=== PATIENT | male | born 1995 | race Caucasian/White ===

== ENCOUNTER 2023-03-29 18:50 | Observation (INO) ==
[2023-03-29 19:55] LABS: Alanine Aminotransferase 27 U/L (7-52); Albumin Globulin Ratio 1.6 (0.9-2); Albumin Level 4.3 gm/dl (3.4-5.0); Alkaline Phosphatase 76 U/L (34-104); Anion Gap 7 (3-11); Aspartate Aminotransferase 35 U/L (13-39); BUN Creatinine Ratio 17.6 (10-20); Bilirubin,Total 0.5 mg/dl (0.2-1.0); Blood Urea Nitrogen 12 mg/dl (6-23); Calcium 9.2 mg/dl (8.6-10.3); Carbon Dioxide 30 mmol/L (21-32); Chloride 99 mmol/L (98-107); Est GFR (African American) > 150.0 ml/min; Est GFR (Non-African American) 130.9 ml/min; Globulin 2.7 gm/dl (2.5-4.0); Glucose 147 mg/dl (70-99(Fasting)); Potassium 3.4 mmol/L (3.5-5.1); Sodium 136 mmol/L (136-145)
[2023-03-29 20:03] LABS: Basophils # (auto) 0.03 K/uL (0.00-0.20); Basophils % (auto) 0.4 %; Eosinophils # (auto) 0.58 K/uL (0.00-0.50); Eosinophils % (auto) 7.6 %; Hematocrit (blood only) 45.2 % (42.0-52.0); Hemoglobin 15.5 g/dl (14.0-18.0); Immature Granulocytes # (auto) 0.03 K/uL (0.01-0.20); Immature Granulocytes % (auto) 0.4 %; Lymphocytes # (auto) 0.97 K/uL (1.20-3.40); Lymphocytes % (auto) 12.7 %; Mean Corpuscular Hgb Conc 34.3 g/dL (32.0-36.0); Mean Corpuscular Volume 84.5 fL (80.0-100.0); Mean Platelet Volume 11.6 fL (9.4-12.4); Monocytes # (auto) 0.53 K/uL (0.11-0.59); Neutrophils # (auto) 5.48 K/uL (1.40-6.50); Neutrophils % (auto) 71.9 %; Platelet Count 278 K/uL (130-400); RDW Coefficient of Variation 12.5 % (11.5-14.5); RDW Standard Deviation 38.1 fL (36.4-46.3); Red Blood Count 5.35 M/uL (4.70-6.10); White Blood Count 7.62 K/ul (4.8-10.8)
[2023-03-29] MEDS ORDERED: VANCOMYCIN HCL 2,500 MG in SODIUM CHLORIDE 0.9% 500 ML IV ONE (22:14)
[2023-03-29] MEDS ORDERED: cefTRIAXone SODIUM 2,000 MG/50 ML BAG IV STA (22:14)
[2023-03-29] MEDS ORDERED: VANCOMYCIN CONSULT ACTIVE PRN (22:14)
[2023-03-29] MEDS ORDERED: SODIUM CHLORIDE 0.9% 1,000 ML IV SCH (22:15)
[2023-03-29] MEDS ORDERED: OPTIRAY 320 500ml IV ONE (22:58)
[2023-03-29 23:28] LABS: C Reactive Protein 10.56 mg/dl (0-0.5); Magnesium 2.1 mg/dl (1.7-2.4)
[2023-03-29 23:35] LABS: Troponin I High Sensitivity 14.8 pg/ml (0-20)
[2023-03-30 00:04] LABS: INR 1.1 (0.9-1.1); Partial Thromboplastin Ratio 1.1; Partial Thromboplastin Time 31.5 Seconds (21.0-31.0); Prothrombin Time 11.7 Seconds (9.0-12.0)
--- NOTE | 2023-03-30 00:35 | CT Scan Report ---
Exam(s): CT HEAD Without Contrast EXAM: CT Head Without Intravenous Contrast CLINICAL HISTORY: Reason for exam: fever, IVDU, RIVERA, CP, concerns for endocarditis. TECHNIQUE: Axial computed tomography images of the head/brain without intravenous contrast. CTDI is 36.67 mGy and DLP is 2259.97 mGy-cm. Automated exposure control was utilized for the study. A dose lowering technique was utilized adhering to the principles of ALARA. COMPARISON: No relevant prior studies available. FINDINGS: Brain: Unremarkable. No hemorrhage. No significant white matter disease. No edema. Ventricles: Unremarkable. No ventriculomegaly. Bones/joints: Unremarkable. No acute fracture. Soft tissues: Unremarkable. Sinuses: Unremarkable as visualized. No acute sinusitis. Mastoid air cells: Unremarkable as visualized. No mastoid effusion. IMPRESSION: Normal head/brain CT. Electronically signed by: Mariusz Erazo M.D. 03/30/23 00:34 AM
--- NOTE | 2023-03-30 00:44 | CT Scan Report ---
Exam(s): CTA CHEST IV Amt: 114ml optiray 320 EXAM: CT Angiography Chest With Intravenous Contrast CLINICAL HISTORY: Reason for exam: PE, fever, IVDU, RIVERA, CP, concerns for endocarditis. TECHNIQUE: Axial computed tomographic angiography images of the chest with intravenous contrast. Automated exposure control was utilized for the study. A dose lowering technique was utilized adhering to the principles of ALARA. MIP reconstructed images were created and reviewed. COMPARISON: No relevant prior studies available. FINDINGS: Pulmonary arteries: Unremarkable. No CT evidence of pulmonary embolism. Aorta: No acute findings. No thoracic aortic aneurysm. Lungs: Patchy groundglass opacities within the right upper lobe. Pleural space: Unremarkable. No significant effusion. No pneumothorax. Heart: Unremarkable. No cardiomegaly. No significant pericardial effusion. No evidence of RV dysfunction. Bones/joints: No acute fracture. No dislocation. Soft tissues: Unremarkable. Lymph nodes: Unremarkable. No enlarged lymph nodes. IMPRESSION: 1. No CT evidence of pulmonary embolism. 2. Patchy groundglass opacities within the right upper lobe. Electronically signed by: Mariusz Erazo M.D. 03/30/23 00:42 AM
--- NOTE | 2023-03-30 00:49 | CT Scan Report ---
Exam(s): CT ABDOMEN + PELVIS With Contrast IV Amt: 114ml optiray 320 EXAM: CT Abdomen and Pelvis With Intravenous Contrast CLINICAL HISTORY: Reason for exam: fever, IVDU,abd, RIVERA, CP, concerns for endocarditis. TECHNIQUE: Axial computed tomography images of the abdomen and pelvis with intravenous contrast. CTDI is 36.67 mGy and DLP is 2259.97 mGy-cm. Automated exposure control was utilized for the study. A dose lowering technique was utilized adhering to the principles of ALARA. CONTRAST: Patient received 114ml optiray 320 of IV contrast COMPARISON: No relevant prior studies available. FINDINGS: Lung bases: Unremarkable. No mass. No consolidation. ABDOMEN: Liver: Unremarkable. No mass. Gallbladder and bile ducts: Unremarkable. No calcified stones. No ductal dilation. Pancreas: Unremarkable. No mass. No ductal dilation. Spleen: Unremarkable. No splenomegaly. Adrenals: Unremarkable. No mass. Kidneys and ureters: Unremarkable. No solid mass. No hydronephrosis. Stomach and bowel: Unremarkable. No obstruction. No mucosal thickening. PELVIS: Appendix: No findings to suggest acute appendicitis. Bladder: Unremarkable. No mass. Reproductive: Unremarkable as visualized. ABDOMEN and PELVIS: Intraperitoneal space: Minimal free fluid in the pelvis. No free air. Bones/joints: No acute fracture. No dislocation. Soft tissues: Unremarkable. Vasculature: Unremarkable. No abdominal aortic aneurysm. Lymph nodes: Unremarkable. No enlarged lymph nodes. IMPRESSION: No acute findings in the abdomen or pelvis. Electronically signed by: Mariusz Erazo M.D. 03/30/23 00:48 AM
--- NOTE | 2023-03-30 02:34 | Emergency Department Note ---
History of Present Illness General Chief complaint: Wound Stated complaint: LEG AND ARM SORE ? 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 Patient is concerned he is septic. No known history of endocarditis but patient has not really been seen by DrAbdi Before. Patient denies numbness, tingling, vomiting, diarrhea. Home Medications Medication Instructions Recorded Confirmed Type buspirone 10 mg tablet 10 mg PO BID 03/30/23 03/30/23 History venlafaxine 75 mg capsule,extended 75 mg PO DAILY 03/30/23 03/30/23 History release 24 hr Allergies Allergy/AdvReac Type Severity Reaction Status Date / Time No Known Allergies Allergy Unverified 03/30/23 01:17 Past Med/Surg History Social History Smoking Status: Current every day smoker Feels Safe at Home: Yes Review of Systems A total of 10 systems reviewed and were otherwise negative Physical Exam Vital Signs Vital Signs - 24 hr 03/29/23 19:06 Temperature 36.5 C Temperature Source Temporal Artery Scan Pulse Rate 73 Respiratory Rate 18 Respiratory Effort / Characteristics Non-Labored Respiratory Depth Normal Blood Pressure 156/123 H Blood Pressure Mean 134 Pulse Oximetry 96 Oxygen Delivery Method Room Air Sepsis Recent Fever Within 48 Hours No Sepsis New/Unexplained Change in Mental Status No Sepsis Action Taken by Nursing No Action Required VITALS: Vitals are noted on the nurse's note and reviewed by myself. Vital signs reviewed. GENERAL: Pleasant gentleman mildly ill-appearing with multiple track robert with surrounding erythema without palpable abscess, in no acute distress, nondiaphoretic, well-developed well-nourished. SKIN: The skin was without rashes, or bruising. There is no tenting of the skin. Capillary reflex less than 2 seconds. HEAD: Normocephalic atraumatic. EARS: External auditory canals clear, tympanic membranes pearly rockwell without erythema or effusion bilaterally. EYES: Pupils equal round and reactive to light and accommodation. Conjunctivae without injection, sclerae without icterus. Extraocular movements intact. NOSE: Patent, turbinates without inflammation or discharge. MOUTH: Mucous membranes moist. Pharynx without erythema or exudate. Uvula midline. Airway patent. Tongue does not deviate. NECK: Supple without nuchal rigidity. No lymphadenopathy. No thyromegaly. Cervical spine is nontender. No JVD. HEART: Regular rate and rhythm LUNGS: Clear to auscultation bilaterally without wheezes, rales or rhonchi. No retractions or accessory muscle use. ABDOMEN: Positive bowel sounds x 4. Normal tympanic percussion. Soft, tender lower abdomen, without masses or organomegaly. Edmonds sign negative. No guarding or rebound tenderness. No CVA tenderness MUSCULOSKELETAL: Multiple track robert with surrounding erythema to all extremities, no palpable abscess, no other muscle atrophy, erythema, or edema noted. NEURO: Patient was alert and oriented to person place and time. Normal sensation to light and sharp touch. No focal neurological deficits. Course Administered Medications Discontinued Medications Sodium Chloride (Nss) 1,000 mls @ 999 mls/hr IV .Q1H1M GREG Stop: 03/29/23 23:15 Last Admin: 03/29/23 23:45 Dose: 999 mls/hr Documented By: KAMARI Vancomycin HCl 2,500 mg/ (Sodium Chloride) 550 mls @ 200 mls/hr IV NOW ONE Stop: 03/30/23 00:43 Last Admin: 03/30/23 00:20 Dose: 200 mls/hr Documented By: KAMARI Ceftriaxone Sodium (Rocephin) 2,000 mg in 50 mls @ 100 mls/hr IV NOW STA Stop: 03/29/23 22:43 Last Infusion: 03/30/23 00:20 Dose: 0 mls/hr Documented By: Admin: 03/29/23 23:47 Dose: 100 mls/hr Documented By: KAMARI Ioversol (Optiray 320 500ml) 114 ml IV ONCE ONE Stop: 03/29/23 22:59 Last Admin: 03/29/23 22:59 Dose: 114 ml Documented By: NANCY Medical Decision Making Medical Records Attestation: I reviewed the patient's medical records. Home Medications Current Medication List: was personally reviewed by me Laboratory Data Attestation: I reviewed the patient's lab results. 03/29/23 19:19 03/29/23 19:19 Lab Results 03/29/23 03/29/23 03/29/23 Range/Units 19:19 19:19 23:09 WBC 7.62 (4.8-10.8) K/ul RBC 5.35 (4.70-6.10) M/uL Hgb 15.5 (14.0-18.0) g/dl Hct 45.2 (42.0-52.0) % MCV 84.5 (80.0-100.0) fL MCH 29.0 (25.0-34.0) pg MCHC 34.3 (32.0-36.0) g/dL RDW Std Deviation 38.1 (36.4-46.3) fL RDW Coeff of Mahi 12.5 (11.5-14.5) % Plt Count 278 (130-400) K/uL MPV 11.6 (9.4-12.4) fL Immature Gran % (Auto) 0.4 % Neut % (Auto) 71.9 % Lymph % (Auto) 12.7 % [place] % (Auto) 7.0 % Eos % (Auto) 7.6 % Baso % (Auto) 0.4 % Neut # (Auto) 5.48 (1.40-6.50) K/uL Lymph # (Auto) 0.97 L (1.20-3.40) K/uL [place] # (Auto) 0.53 (0.11-0.59) K/uL Eos # (Auto) 0.58 H (0.00-0.50) K/uL Baso # (Auto) 0.03 (0.00-0.20) K/uL Immature Gran # (Auto) 0.03 (0.01-0.20) K/uL ESR (0-15) mm/hr PT (9.0-12.0) Seconds INR (0.9-1.1) APTT (21.0-31.0) Seconds PTT Ratio Sodium 136 (136-145) mmol/L Potassium 3.4 L (3.5-5.1) mmol/L Chloride 99 (98-107) mmol/L Carbon Dioxide 30 (21-32) mmol/L Anion Gap 7 (3-11) BUN 12 (6-23) mg/dl Creatinine 0.68 (0.6-1.4) mg/dl Est Cr Clr Drug Dosing Not Reportable Est GFR ( Amer) > 150.0 ml/min Est GFR (Non-Af Amer) 130.9 ml/min BUN/Creatinine Ratio 17.6 (10-20) Glucose 147 H (70-99(Fasting)) mg/dl Lactate 0.7 (0.4-2.0) mmol/L Calcium 9.2 (8.6-10.3) mg/dl Magnesium 2.1 (1.7-2.4) mg/dl Total Bilirubin 0.5 (0.2-1.0) mg/dl AST 35 (13-39) U/L ALT 27 (7-52) U/L Alkaline Phosphatase 76 (34-104) U/L Troponin I High Sens 14.8 (0-20) pg/ml C-Reactive Protein 10.56 H (0-0.5) mg/dl Total Protein 7.0 (6.0-8.3) gm/dl Albumin 4.3 (3.4-5.0) gm/dl Globulin 2.7 (2.5-4.0) gm/dl Albumin/Globulin Ratio 1.6 (0.9-2) Procalcitonin (0-0.5) ng/ml 03/29/23 03/29/23 03/29/23 Range/Units 23:09 23:09 23:09 WBC (4.8-10.8) K/ul RBC (4.70-6.10) M/uL Hgb (14.0-18.0) g/dl Hct (42.0-52.0) % MCV (80.0-100.0) fL MCH (25.0-34.0) pg MCHC (32.0-36.0) g/dL RDW Std Deviation (36.4-46.3) fL RDW Coeff of Mahi (11.5-14.5) % Plt Count (130-400) K/uL MPV (9.4-12.4) fL Immature Gran % (Auto) % Neut % (Auto) % Lymph % (Auto) % [place] % (Auto) % Eos % (Auto) % Baso % (Auto) % Neut # (Auto) (1.40-6.50) K/uL Lymph # (Auto) (1.20-3.40) K/uL [place] # (Auto) (0.11-0.59) K/uL Eos # (Auto) (0.00-0.50) K/uL Baso # (Auto) (0.00-0.20) K/uL Immature Gran # (Auto) (0.01-0.20) K/uL ESR 18 H (0-15) mm/hr PT 11.7 (9.0-12.0) Seconds INR 1.1 (0.9-1.1) APTT 31.5 H (21.0-31.0) Seconds PTT Ratio 1.1 Sodium (136-145) mmol/L Potassium (3.5-5.1) mmol/L Chloride (98-107) mmol/L Carbon Dioxide (21-32) mmol/L Anion Gap (3-11) BUN (6-23) mg/dl Creatinine (0.6-1.4) mg/dl Est Cr Clr Drug Dosing Est GFR ( Amer) ml/min Est GFR (Non-Af Amer) ml/min BUN/Creatinine Ratio (10-20) Glucose (70-99(Fasting)) mg/dl Lactate (0.4-2.0) mmol/L Calcium (8.6-10.3) mg/dl Magnesium (1.7-2.4) mg/dl Total Bilirubin (0.2-1.0) mg/dl AST (13-39) U/L ALT (7-52) U/L Alkaline Phosphatase (34-104) U/L Troponin I High Sens (0-20) pg/ml C-Reactive Protein (0-0.5) mg/dl Total Protein (6.0-8.3) gm/dl Albumin (3.4-5.0) gm/dl Globulin (2.5-4.0) gm/dl Albumin/Globulin Ratio (0.9-2) Procalcitonin < 0.05 (0-0.5) ng/ml Imaging Data Attestation: I personally reviewed and interpreted this imaging study as follows: Radiologist's Impression: Abdomen/Pelvis CT 03/29/23 22:14 Exam(s): CT ABDOMEN + PELVIS With Contrast IV Amt: 114ml optiray 320 EXAM: CT Abdomen and Pelvis With Intravenous Contrast CLINICAL HISTORY: Reason for exam: fever, IVDU,abd, RIVERA, CP, concerns for endocarditis. TECHNIQUE: Axial computed tomography images of the abdomen and pelvis with intravenous contrast. CTDI is 36.67 mGy and DLP is 2259.97 mGy-cm. Automated exposure control was utilized for the study. A dose lowering technique was utilized adhering to the principles of ALARA. CONTRAST: Patient received 114ml optiray 320 of IV contrast COMPARISON: No relevant prior studies available. FINDINGS: Lung bases: Unremarkable. No mass. No consolidation. ABDOMEN: Liver: Unremarkable. No mass. Gallbladder and bile ducts: Unremarkable. No calcified stones. No ductal dilation. Pancreas: Unremarkable. No mass. No ductal dilation. Spleen: Unremarkable. No splenomegaly. Adrenals: Unremarkable. No mass. Kidneys and ureters: Unremarkable. No solid mass. No hydronephrosis. Stomach and bowel: Unremarkable. No obstruction. No mucosal thickening. PELVIS: Appendix: No findings to suggest acute appendicitis. Bladder: Unremarkable. No mass. Reproductive: Unremarkable as visualized. ABDOMEN and PELVIS: Intraperitoneal space: Minimal free fluid in the pelvis. No free air. Bones/joints: No acute fracture. No dislocation. Soft tissues: Unremarkable. Vasculature: Unremarkable. No abdominal aortic aneurysm. Lymph nodes: Unremarkable. No enlarged lymph nodes. IMPRESSION: No acute findings in the abdomen or pelvis. Electronically signed by: Mariusz Erazo M.D. 03/30/23 00:48 AM Chest CTA 03/29/23 22:14 Exam(s): CTA CHEST IV Amt: 114ml optiray 320 EXAM: CT Angiography Chest With Intravenous Contrast CLINICAL HISTORY: Reason for exam: PE, fever, IVDU, RIVERA, CP, concerns for endocarditis. TECHNIQUE: Axial computed tomographic angiography images of the chest with intravenous contrast. Automated exposure control was utilized for the study. A dose lowering technique was utilized adhering to the principles of ALARA. MIP reconstructed images were created and reviewed. COMPARISON: No relevant prior studies available. FINDINGS: Pulmonary arteries: Unremarkable. No CT evidence of pulmonary embolism. Aorta: No acute findings. No thoracic aortic aneurysm. Lungs: Patchy groundglass opacities within the right upper lobe. Pleural space: Unremarkable. No significant effusion. No pneumothorax. Heart: Unremarkable. No cardiomegaly. No significant pericardial effusion. No evidence of RV dysfunction. Bones/joints: No acute fracture. No dislocation. Soft tissues: Unremarkable. Lymph nodes: Unremarkable. No enlarged lymph nodes. IMPRESSION: 1. No CT evidence of pulmonary embolism. 2. Patchy groundglass opacities within the right upper lobe. Electronically signed by: Mariusz Erazo M.D. 03/30/23 00:[address] 03/29/23 22:14 Exam(s): CT HEAD Without Contrast EXAM: CT Head Without Intravenous Contrast CLINICAL HISTORY: Reason for exam: fever, IVDU, RIVERA, CP, concerns for endocarditis. TECHNIQUE: Axial computed tomography images of the head/brain without intravenous contrast. CTDI is 36.67 mGy and DLP is 2259.97 mGy-cm. Automated exposure control was utilized for the study. A dose lowering technique was utilized adhering to the principles of ALARA. COMPARISON: No relevant prior studies available. FINDINGS: Brain: Unremarkable. No hemorrhage. No significant white matter disease. No edema. Ventricles: Unremarkable. No ventriculomegaly. Bones/joints: Unremarkable. No acute fracture. Soft tissues: Unremarkable. Sinuses: Unremarkable as visualized. No acute sinusitis. Mastoid air cells: Unremarkable as visualized. No mastoid effusion. IMPRESSION: Normal head/brain CT. Electronically signed by: Mariusz Erazo M.D. 03/30/23 00:34 AM MDM Narrative Prior records/ancillary studies reviewed and summarized above. Nursing notes reviewed. Additional history obtained from girlfriend. The patient's history was concerning for fever, chills, joint pains and chest pain and abdominal pain and IV drug abuser. Differential diagnosis: Etiologies such as endocarditis, sepsis, septic emboli, metabolic, infection, hypo/hyperglycemia, electrolyte abnormalities, cardiac sources, intracerebral event, toxicologic, neurologic, as well as others were entertained. Physical examination: As above. ER treatment provided: IV Lock An order was placed for continuous cardiac monitoring. The monitor shows a rate of 60-100 with a sinus rhythm per my interpretation. Vancomycin and Rocephin were ordered On reassessment the patient felt better. Diagnostics interpretation by me: ECG: Ordered for chest pain EKG: Normal sinus, normal intervals, no acute ST-T wave changes. Impression normal sinus rhythm independent interpreted by myself I think arrhythmia is unlikely. EKG shows normal sinus rhythm with no interval abnormalities such as QT prolongation or WPW. There are no findings to suggest Brugada syndrome. Cardiac monitoring in the emergency department reveals no tachycardic or bradycardic dysrhythmia. Hypertrophic cardiomyopathy was considered but there are no clear historical elements pointing toward this. EKG is not suggestive. The QRS voltage is not extremely large and there are no suggestive Q waves. The labs Independently Interpreted by myself revealed elevated inflammatory markers, no worrisome leukocytosis, negative troponin Negative lactic, blood cultures pending Imaging studies: Chest x-ray with no acute consolidation, pneumothorax or free air per my independent interpreted CTs of the head chest abdomen pelvis reviewed by myself and were interpreted radiology as above. Consultation: A consultation was placed with the hospitalist. The case was discussed and diagnostics were reviewed. The patient was evaluated in the ER for further treatment. Exam and history seem consistent with pneumonia with cellulitis with concerns for endocarditis and a IV drug abuser. Patient was started on broad-spectrum antibiotics. Labs and diagnostics were independently interpreted by myself. No worrisome leukocytosis, elevated inflammatory markers. Blood cultures pending. Negative lactic acid. Medicine was consulted and The case was discussed. Patient is agreeable treatment plan of admission. By the evaluation outlined above emergent etiologies such as electrolyte abnormalities, intracerebral event, toxologic, neurologic, abnormalities blood glucose, metabolic, as well as others were deemed relatively unlikely. The pt informed about the findings as listed above. All questions were answered and pleased with the treatment. The chart was completed utilizing [employer] Speech voice recognition software. Grammatical errors, random word insertions, pronoun errors, and incomplete sentences are an occassional consequence of this system due to software limitations, ambient noise, and hardware issues. Any formal questions or concerns about the content, text, or information contained within the body of this dictation should be directly addressed to the physician pediatric dental assistant for clarification. Impression & Plan Community acquired pneumonia, Active intravenous drug use, Cellulitis, Chest pain, Abdominal pain, Headache Discharge Plan Visit Data Chief Complaint: Wound Stated Complaint: LEG AND ARM SORE ? MRSA ED Provider: Natalya Rodríguez ED Midlevel Provider: Kiara Perales Discharge Problem: Community acquired pneumonia, Active intravenous drug use, Cellulitis, Chest pain, Abdominal pain, Headache Patient Disposition: Admitted As Inpatient Condition: Fair Forms Stand Alone Forms: [facility] [employer] Prescriptions Prescriptions: No Action venlafaxine 75 mg capsule,extended release 24hr 75 mg PO DAILY buspirone 10 mg tablet 10 mg PO BID Referrals Referrals: PCP,NO [Primary Care Provider] -
[2023-03-30] MEDS ORDERED: VANCOMYCIN HCL 1,000 MG in SODIUM CHLORIDE 0.9% 500 ML IV SCH (03:20)
[2023-03-30] MEDS ORDERED: VANCOMYCIN CONSULT ACTIVE PRN (03:20)
--- NOTE | 2023-03-30 04:28 | History & Physical Report ---
Date of Service March 30, 2023 Assessment & Plan (1) Active intravenous drug use: (2) Cellulitis: (3) Sepsis: (4) Pneumonia of right upper lobe due to infectious organism: Plan Sepsis- Multiple potential sources including but not limited to: Right upper lobe pneumonia, multiple areas of skin infection associated with IV drug use, endocarditis Continue vancomycin IV begun in ED per pharmacokinetic monitoring, and ceftriaxone 2 g IV daily Follow all cultures Status post 1 L normal saline in ED, continue normal saline at 100 mils per hour Order complete echocardiogram to assess for possible endocarditis IV drug abuse- Patient reports utilizing heroin and fentanyl. He later reported that he also had purchased buprenorphine on the street and asked if that could be prescribed for him in the hospital. We will consult pain management, since patient has not been on buprenorphine on a prescribed basis Lorazepam 1 mg IV every 6 hours as needed Zyprexa 5 mg IM every 6 hours as needed Would not place officially on withdrawal protocol scale, unless patient starts heading in that direction Patient was advised on a preemptive basis to remain in the hospital for the full duration of what ever therapy was determined needed to be done, or else he could have very significant complications, including premature Anxiety/depression- Continue buspirone 10 mg p.o. twice daily and venlafaxine XR 75 mg daily Admission and Anticipated Discharge Date Admission Date: March 30, 2023 History of Present Illness Chief Complaint: The patient presents to the emergency department due to fevers, chills, generalized joint and muscle pains, chest pain, abdominal pain and generalized illness, with his concerns that he is septic. He had initially presented to the emergency department the previous evening, but left without being seen after being screened in triage. 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 He presents to the emergency department with concerns regarding symptoms above, and more specifically has had worsening erythema and discomfort involving right knee, left wrist, chin and multiple other areas. From the emergency department the patient received the following: Normal saline 1 L, vancomycin 2500 mg IV and ceftriaxone 2 g IV Allergies Allergy/AdvReac Type Severity Reaction Status Date / Time No Known Allergies Allergy Unverified 03/30/23 01:17 Home Medications Medication Instructions Recorded Confirmed Type buspirone 10 mg tablet 10 mg PO BID 03/30/23 03/30/23 History venlafaxine 75 mg capsule,extended 75 mg PO DAILY 03/30/23 03/30/23 History release 24 hr Past Med/Surg History Social History Smoking Status: Current every day smoker Tobacco Type: Cigarettes Cigarettes Per Day: 1 pack; Second Hand Exposure: Yes; Do You Dip or Chew Tobacco: No; Tobacco Cessation Education Requested by Patient: No Hx Alcohol Use: No Hx Substance Use: Yes Last Used Substance: Days (ago) Preferred Language: Kittitian Communication Ability: Effective 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 Current Living Situation: Homeless Other Information That Helps Us Care for You: No Feels Safe at Home: Yes Safety Concerns: Feels Safe At This Time Review of Systems Review of Systems: The patient denies chest pain, palpitations, shortness of breath, dyspnea on exertion, cough, lower extremity swelling, sore throat, nausea, vomiting, diarrhea , constipation, pelvic pain, blood in urine or stool, dysuria, urinary frequency or urgency, lightheadedness, dizziness, headache, memory loss, loss of consciousness, imbalance, focal weakness, numbness or tingling in arms or legs, back or neck pain, or night sweats. The review of systems is otherwise negative other than for that already noted above, and at least 10 systems have been reviewed. Physical Exam Physical Exam: The patient is awake, alert and oriented 3, well developed and well nourished, normocephalic and atraumatic, lying in bed and in no acute distress. HEENT--PERRL, EOMI, mucous membranes and oropharynx dry. Neck--supple. No JVD. No bruits. Thyroid normal, trachea midline, no adenopathy. Heart--normal S1 and S2. No murmurs, rubs or gallops. Lungs--clear bilaterally, no respiratory distress, no accessory muscle use. Abdomen--normal bowel sounds and soft. Nontender. Nondistended, no hernias or masses, no organomegaly. Extremities--no cyanosis or clubbing. No edema. Dermatologic--multiple track robert with surrounding erythema and warmth Neurologic--cranial nerves II through XII grossly intact. Rheumatologic--normal range of motion. Psychiatric--cooperative Results & Data Results & Data Vital Signs (Past 12 Hours) Vital Signs Temp Pulse Pulse Resp BP BP Pulse Ox 03/30/23 03:28 80 16 112/63 93 03/30/23 03:24 03/30/23 03:24 36.8 C 95 H 16 140/80 94 03/30/23 02:45 80 16 112/62 93 03/30/23 03:00 80 16 93 03/29/23 19:06 36.5 C 73 18 156/123 H 96 O2 Del Method 03/30/23 03:28 Room Air 03/30/23 03:24 Room Air 03/30/23 03:24 Room Air 03/30/23 02:45 Room Air 03/30/23 03:00 Room Air 03/29/23 19:06 Room Air Laboratory Results Laboratory Results WBC 7.62 K/ul (4.8-10.8) 03/29/23 19:19 RBC 5.35 M/uL (4.70-6.10) 03/29/23 19:19 Hgb 15.5 g/dl (14.0-18.0) 03/29/23 19:19 Hct 45.2 % (42.0-52.0) 03/29/23 19:19 MCV 84.5 fL (80.0-100.0) 03/29/23 19:19 MCH 29.0 pg (25.0-34.0) 03/29/23 19:19 MCHC 34.3 g/dL (32.0-36.0) 03/29/23 19:19 RDW Std Deviation 38.1 fL (36.4-46.3) 03/29/23 19:19 RDW Coeff of Mahi 12.5 % (11.5-14.5) 03/29/23 19:19 Plt Count 278 K/uL (130-400) 03/29/23 19:19 MPV 11.6 fL (9.4-12.4) 03/29/23 19:19 Immature Gran % (Auto) 0.4 % 03/29/23 19:19 Neut % (Auto) 71.9 % 03/29/23 19:19 Lymph % (Auto) 12.7 % 03/29/23 19:19 [place] % (Auto) 7.0 % 03/29/23 19:19 Eos % (Auto) 7.6 % 03/29/23 19:19 Baso % (Auto) 0.4 % 03/29/23 19:19 Neut # (Auto) 5.48 K/uL (1.40-6.50) 03/29/23 19:19 Lymph # (Auto) 0.97 K/uL (1.20-3.40) L 03/29/23 19:19 [place] # (Auto) 0.53 K/uL (0.11-0.59) 03/29/23 19:19 Eos # (Auto) 0.58 K/uL (0.00-0.50) H 03/29/23 19:19 Baso # (Auto) 0.03 K/uL (0.00-0.20) 03/29/23 19:19 Immature Gran # (Auto) 0.03 K/uL (0.01-0.20) 03/29/23 19:19 ESR 18 mm/hr (0-15) H 03/29/23 23:09 PT 11.7 Seconds (9.0-12.0) 03/29/23 23:09 INR 1.1 (0.9-1.1) 03/29/23 23:09 APTT 31.5 Seconds (21.0-31.0) H 03/29/23 23:09 PTT Ratio 1.1 03/29/23 23:09 Sodium 136 mmol/L (136-145) 03/29/23 19:19 Potassium 3.4 mmol/L (3.5-5.1) L 03/29/23 19:19 Chloride 99 mmol/L (98-107) 03/29/23 19:19 Carbon Dioxide 30 mmol/L (21-32) 03/29/23 19:19 Anion Gap 7 (3-11) 03/29/23 19:19 BUN 12 mg/dl (6-23) 03/29/23 19:19 Creatinine 0.68 mg/dl (0.6-1.4) 03/29/23 19:19 Est Cr Clr Drug Dosing Not Reportable 03/29/23 19:19 Est GFR ( Amer) > 150.0 ml/min 03/29/23 19:19 Est GFR (Non-Af Amer) 130.9 ml/min 03/29/23 19:19 BUN/Creatinine Ratio 17.6 (10-20) 03/29/23 19:19 Glucose 147 mg/dl (70-99(Fasting)) H 03/29/23 19:19 Lactate 0.7 mmol/L (0.4-2.0) 03/29/23 23:09 Calcium 9.2 mg/dl (8.6-10.3) 03/29/23 19:19 Magnesium 2.1 mg/dl (1.7-2.4) 03/29/23 19:19 Total Bilirubin 0.5 mg/dl (0.2-1.0) 03/29/23 19:19 AST 35 U/L (13-39) 03/29/23 19:19 ALT 27 U/L (7-52) 03/29/23 19:19 Alkaline Phosphatase 76 U/L (34-104) 03/29/23 19:19 Troponin I High Sens 14.8 pg/ml (0-20) 03/29/23 19:19 C-Reactive Protein 10.56 mg/dl (0-0.5) H 03/29/23 19:19 Total Protein 7.0 gm/dl (6.0-8.3) 03/29/23 19:19 Albumin 4.3 gm/dl (3.4-5.0) 03/29/23 19:19 Globulin 2.7 gm/dl (2.5-4.0) 03/29/23 19:19 Albumin/Globulin Ratio 1.6 (0.9-2) 03/29/23 19:19 Procalcitonin < 0.05 ng/ml (0-0.5) 03/29/23 23:09 Impressions Abdomen/Pelvis CT 03/29/23 22:14 Exam(s): CT ABDOMEN + PELVIS With Contrast IV Amt: 114ml optiray 320 EXAM: CT Abdomen and Pelvis With Intravenous Contrast CLINICAL HISTORY: Reason for exam: fever, IVDU,abd, RIVERA, CP, concerns for endocarditis. TECHNIQUE: Axial computed tomography images of the abdomen and pelvis with intravenous contrast. CTDI is 36.67 mGy and DLP is 2259.97 mGy-cm. Automated exposure control was utilized for the study. A dose lowering technique was utilized adhering to the principles of ALARA. CONTRAST: Patient received 114ml optiray 320 of IV contrast COMPARISON: No relevant prior studies available. FINDINGS: Lung bases: Unremarkable. No mass. No consolidation. ABDOMEN: Liver: Unremarkable. No mass. Gallbladder and bile ducts: Unremarkable. No calcified stones. No ductal dilation. Pancreas: Unremarkable. No mass. No ductal dilation. Spleen: Unremarkable. No splenomegaly. Adrenals: Unremarkable. No mass. Kidneys and ureters: Unremarkable. No solid mass. No hydronephrosis. Stomach and bowel: Unremarkable. No obstruction. No mucosal thickening. PELVIS: Appendix: No findings to suggest acute appendicitis. Bladder: Unremarkable. No mass. Reproductive: Unremarkable as visualized. ABDOMEN and PELVIS: Intraperitoneal space: Minimal free fluid in the pelvis. No free air. Bones/joints: No acute fracture. No dislocation. Soft tissues: Unremarkable. Vasculature: Unremarkable. No abdominal aortic aneurysm. Lymph nodes: Unremarkable. No enlarged lymph nodes. IMPRESSION: No acute findings in the abdomen or pelvis. Electronically signed by: Mariusz Erazo M.D. 03/30/23 00:48 AM Chest CTA 03/29/23 22:14 Exam(s): CTA CHEST IV Amt: 114ml optiray 320 EXAM: CT Angiography Chest With Intravenous Contrast CLINICAL HISTORY: Reason for exam: PE, fever, IVDU, RIVERA, CP, concerns for endocarditis. TECHNIQUE: Axial computed tomographic angiography images of the chest with intravenous contrast. Automated exposure control was utilized for the study. A dose lowering technique was utilized adhering to the principles of ALARA. MIP reconstructed images were created and reviewed. COMPARISON: No relevant prior studies available. FINDINGS: Pulmonary arteries: Unremarkable. No CT evidence of pulmonary embolism. Aorta: No acute findings. No thoracic aortic aneurysm. Lungs: Patchy groundglass opacities within the right upper lobe. Pleural space: Unremarkable. No significant effusion. No pneumothorax. Heart: Unremarkable. No cardiomegaly. No significant pericardial effusion. No evidence of RV dysfunction. Bones/joints: No acute fracture. No dislocation. Soft tissues: Unremarkable. Lymph nodes: Unremarkable. No enlarged lymph nodes. IMPRESSION: 1. No CT evidence of pulmonary embolism. 2. Patchy groundglass opacities within the right upper lobe. Electronically signed by: Mariusz Erazo M.D. 03/30/23 00:[address] 03/29/23 22:14 Exam(s): CT HEAD Without Contrast EXAM: CT Head Without Intravenous Contrast CLINICAL HISTORY: Reason for exam: fever, IVDU, RIVERA, CP, concerns for endocarditis. TECHNIQUE: Axial computed tomography images of the head/brain without intravenous contrast. CTDI is 36.67 mGy and DLP is 2259.97 mGy-cm. Automated exposure control was utilized for the study. A dose lowering technique was utilized adhering to the principles of ALARA. COMPARISON: No relevant prior studies available. FINDINGS: Brain: Unremarkable. No hemorrhage. No significant white matter disease. No edema. Ventricles: Unremarkable. No ventriculomegaly. Bones/joints: Unremarkable. No acute fracture. Soft tissues: Unremarkable. Sinuses: Unremarkable as visualized. No acute sinusitis. Mastoid air cells: Unremarkable as visualized. No mastoid effusion. IMPRESSION: Normal head/brain CT. Electronically signed by: Mariusz Erazo M.D. 03/30/23 00:34 AM Code Status & VTE Plan Code Status Full code VTE Prophylaxis Plan VTE Prophylaxis will be ordered: Yes PG Care Time/CCT Total # of Minutes Spent Total Time Spent with Patient: Total time spent is greater than 50% in coordination of care (as documented) at patient's floor/unit and/or counseling patient: Coding Level of Care Code 09721 INT INP/OBS CARE 3/75MIN Diagnoses Active intravenous drug use F19.90 Cellulitis L03.90 Sepsis A41.9 Pneumonia of right upper lobe due to infectious organism J18.9
[2023-03-30] MEDS ORDERED: OLANZapine 10 MG/2.1 ML SDV IM PRN (04:49)
[2023-03-30] MEDS ORDERED: OLANZapine 10 MG/2.1 ML SDV IM SCH (06:00)
--- NOTE | 2023-03-30 07:33 | XRay Report ---
SINGLE VIEW CHEST CLINICAL HISTORY: Sepsis. FINDINGS: 2 AP, portable, upright chest radiographs are compared to chest CT performed earlier the 03/29/2023. The cardiomediastinal silhouette is unremarkable. The lungs and pleural spaces are clear. No pneumothorax is seen. The bony thorax is grossly intact. IMPRESSION: No active disease in the chest. Right apical groundglass consolidation seen by CT is not apparent on x-ray. ACT 112: Negative or not required by law. Electronically signed by: Jani Mcgowan M.D. 03/30/2023 7:32 AM
[2023-03-30 08:09] LABS: Appearance Urine Clear (Clear); Bilirubin Urine Negative (Negative); Blood Urine Negative (Negative); Color Urine Yellow; Glucose Urine UA Negative (Negative); Ketones Urine 4+ (Negative); Leukocyte Esterase Urine Negative (Negative); Nitrite Urine Negative (Negative); Protein Urine Negative (Negative); Specific Gravity Urine 1.037 (1.000-1.030); Urobilinogen Urine Negative (Negative); pH Urine 7.5 (4.5-7.5)
[2023-03-30] MEDS: busPIRone 5 MG TAB PO SCH ×2 (08:58→20:27)
[2023-03-30] MEDS: VENLAFAXINE HCL XR 75 MG CAPXR PO SCH (08:58)
[2023-03-30] MEDS: LORazepam 2 MG/1 ML VIAL IV PRN ×2 (09:13→20:36)
[2023-03-30] MEDS: ACETAMINOPHEN 325 MG TAB PO PRN ×3 (09:13→20:36)
--- NOTE | 2023-03-30 09:21 | Pharmacy Report ---
Pharmacy PK ABX Note - Date of Service March 30, 2023 - Assessment and Plan Assessment 27 year old M receiving Vancomycin and Ceftriaxone for treatment of cellulitis. * Day #1 of antimicrobial therapy. * PMHx significant for IV drug abuse. * HPI: Presented with fever, chills, joint pains, chest pain, abdominal pain, and generalized illness. * Labs/Vitals: afebrile, no leukocytosis, SCr 0.68 (baseline unknown), Lactate and Procal normal. * Micro: Blood cultures pending. * Vancomycin is ordered empirically so will discontinue after 48 hours of therapy. Will order MRSA nasal swab for possibility of RUL pneumonia. Likely need to rule out endocarditis in a patient with history of IV drug abuse. Plan Vancomycin * Loading dose: 2500 mg IV x 1 * Maintenance dose: 1000 mg IV every 8 hours * Regimen is predicted to achieve target AUC/ZOILA of 400-600 mg/L.hr * Random level ordered for: 03/31/23 Ceftriaxone * 2000 mg IV every 24 hours Pharmacy will continue to follow and will adjust dose/frequency as necessary. Thank you. Pharmacy has transitioned to AUC monitoring for vancomycin. AUC/ZOILA is the preferred PK/PD target and is associated with decreased risk of nephrotoxicity compared to traditional trough targets.
--- NOTE | 2023-03-30 09:41 | Pain Management Consultation ---
Date of Consultation March 30, 2023 Assessment & Plan (1) Active intravenous drug use: (2) Sepsis: (3) Skin infection: (4) Pneumonia of right upper lobe due to infectious organism: (5) Community acquired pneumonia: Laterality: right Lung location: upper lobe of lung Qualified Code(s): J18.9 - Pneumonia, unspecified organism Plan 1. Pain management clinic does not offer buprenorphine treatment currently. * Recommend patient attend a drug rehabilitation program to initiate buprenorphine if felt appropriate by rehab team. 2. While inpatient, recommend adding: * clonidine 0.1 mg PO q8h PRN withdrawal symptoms * Remeron 15 mg PO qhs Pain management service will sign off at this time. Please call if any questions History of Present Illness Reason for Consultation: heroin withdrawal Attending Physician: Mago Kelley MD History of Present Illness Per ER provider note from 03/30/2023 early a.m.: "This 27-year-old IV drug abuser for heroin and fentanyl presents the ER for fever, chills, joint pains, chest pain, abdominal pain, and generalized illness. Patient is concerned he is septic. No known history of endocarditis but patient has not really been seen by Before. Patient denies numbness, tingling, vomiting, diarrhea." "A consultation was placed with the hospitalist. The case was discussed and diagnostics were reviewed. The patient was evaluated in the ER for further treatment. Exam and history seem consistent with pneumonia with cellulitis with concerns for endocarditis and a IV drug abuser. Patient was started on broad-spectrum antibiotics. Labs and diagnostics were independently interpreted by myself. No worrisome leukocytosis, elevated inflammatory markers. Blood cultures pending. Negative lactic acid. Medicine was consulted and The case was discussed. Patient is agreeable treatment plan of admission. By the evaluation outlined above emergent etiologies such as electrolyte abnormalities, intracerebral event, toxologic, neurologic, abnormalities blood glucose, metabolic, as well as others were deemed relatively unlikely." It is noted that the patient apparently initially presented to the [facility] ED on the night of 03/29, but he ended up leaving, without being seen, after he was screened in the triage area. The patient does admit to being an IV drug user of heroin and fentanyl. He purchased buprenorphine on the street. When further asked about what led him to where he currently is, he says that he recently got out of detention and [place], and then went downtown and "got high". Unsure of how the patient made it to the [place] area. Apparently, the patient is interested in a prescription for buprenorphine, as he was asking if he could be prescribed this while in the hospital. Case discussed with Dr. Shanna Benavidez. Allergies Allergy/AdvReac Type Severity Reaction Status Date / Time No Known Allergies Allergy Unverified 03/30/23 01:17 Home Medications Medication Instructions Recorded Confirmed Type buspirone 10 mg tablet 10 mg PO BID 03/30/23 03/30/23 History venlafaxine 75 mg capsule,extended 75 mg PO DAILY 03/30/23 03/30/23 History release 24 hr Patient History Social History Smoking Status: Current every day smoker Tobacco Type: Cigarettes Cigarettes Per Day: 1 pack; Second Hand Exposure: Yes; Do You Dip or Chew Tobacco: No; Tobacco Cessation Education Requested by Patient: No Hx Alcohol Use: No Hx Substance Use: Yes Last Used Substance: Days (ago) Preferred Language: Thai Communication Ability: Effective 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 HEAD/FACE: Normocephalic and atraumatic. EYES: No drainage or conjunctival injection. ENT: Nose without bleeding or discharge. NECK: Full ROM without apparent pain. No swelling or masses noted. RESPIRATORY: Patient with unlabored breathing. No signs of respiratory distress. CHEST/AXILLA: Chest movement symmetrical. No deformities noted. SKIN: [place], warm and dry. Has diffuse spotty robert with mild erythema. MS/EXTREMITY: No deformities. Moving extremities appropriately. Patient states swelling in both feet, but inspection/palpation is not consistent with subjective information. NEURO: Alert and appears oriented. Speech is fluent. Cranial Nerves are grossly intact. PSYCH: Alert, cooperative, affect is calm.
[2023-03-30] MEDS: VANCOMYCIN HCL 1,000 MG in SODIUM CHLORIDE 0.9% 250 ML IV SCH ×2 (10:12→17:16)
[2023-03-30] MEDS ORDERED: ALBUTEROL HFA 8 GM INHALER INH PRN (11:31)
--- NOTE | 2023-03-30 11:45 | XCELERA ---
[id number] [id number]
--- NOTE | 2023-03-30 12:32 | Electrocardiogram Report ---
Test Reason : Blood Pressure : / mmHG Vent. Rate : 081 BPM Atrial Rate : 081 BPM P-R Int : 136 ms QRS Dur : 102 ms QT Int : 404 ms P-R-T Axes : 074 072 067 degrees QTc Int : 469 ms Normal sinus rhythm Normal ECG No previous ECGs available Confirmed by Jeremiah Solares ([id number]) on 03/30/2023 12:32:45 PM Referred By: REFERRED SELF Confirmed By:Jeremiah Solares
[2023-03-30] MEDS ORDERED: cloNIDine HCL 0.1 MG TAB PO PRN (16:28)
[2023-03-30] MEDS ORDERED: DIPHENOXYLATE/ATROPINE 2.5/0.025MG TAB PO PRN (16:28)
--- NOTE | 2023-03-30 16:39 | Communication Note ---
Date of Service: March 30, 2023 Please refer to the H&P dictated earlier this morning for details of presentation on admission. Of note this is a 27-year-old active IV drug abuser who presented to the ER due to fevers, chills, generalized joint and muscle pains and generalized illness. He had initially presented to the emergency room earlier and had left AGAINST MEDICAL ADVICE but returned due to his concerns to get admitted. Blood cultures are pending at this time. Because of his history of heroin and fentanyl abuse, I started him on opioid withdrawal protocol. I advised him against leaving without medical advice. I personally spoke to his mother on the phone (she would like to get a call if the blood cultures come back positive). TTE shows no valvular vegetations. Plan to continue antibiotics as ordered.
[2023-03-30] MEDS: ONDANSETRON INJ 2 MG/ML 2 ML VIAL IV PRN (18:28)
[2023-03-30] MEDS: cloNIDine HCL 0.1 MG TAB PO SCH (20:28)
[2023-03-31] MEDS ORDERED: cefTRIAXone SODIUM 2,000 MG in DEXTROSE 5 % MINI-B 50 ML IV SCH
[2023-03-31] MEDS: VANCOMYCIN HCL 1,000 MG in SODIUM CHLORIDE 0.9% 250 ML IV SCH ×2 (02:07→10:41)
[2023-03-31] MEDS: LORazepam 2 MG/1 ML VIAL IV PRN ×2 (03:27→08:57)
[2023-03-31 07:45] LABS: Basophils # (auto) 0.01 K/uL (0.00-0.20); Basophils % (auto) 0.1 %; Eosinophils # (auto) 0.37 K/uL (0.00-0.50); Eosinophils % (auto) 5.3 %; Hematocrit (blood only) 38.6 % (42.0-52.0); Hemoglobin 13.6 g/dl (14.0-18.0); Immature Granulocytes # (auto) 0.02 K/uL (0.01-0.20); Immature Granulocytes % (auto) 0.3 %; Lymphocytes # (auto) 1.26 K/uL (1.20-3.40); Lymphocytes % (auto) 17.9 %; Mean Corpuscular Hemoglobin 29.4 pg (25.0-34.0); Mean Corpuscular Hgb Conc 35.2 g/dL (32.0-36.0); Mean Corpuscular Volume 83.5 fL (80.0-100.0); Mean Platelet Volume 11.1 fL (9.4-12.4); Monocytes # (auto) 0.43 K/uL (0.11-0.59); Monocytes % (auto) 6.1 %; Neutrophils # (auto) 4.93 K/uL (1.40-6.50); Neutrophils % (auto) 70.3 %; Platelet Count 249 K/uL (130-400); RDW Coefficient of Variation 12.4 % (11.5-14.5); RDW Standard Deviation 37.8 fL (36.4-46.3); Red Blood Count 4.62 M/uL (4.70-6.10); White Blood Count 7.02 K/ul (4.8-10.8)
[2023-03-31 08:05] LABS: Alanine Aminotransferase 14 U/L (7-52); Albumin Globulin Ratio 1.5 (0.9-2); Albumin Level 3.5 gm/dl (3.4-5.0); Alkaline Phosphatase 58 U/L (34-104); Anion Gap 5 (3-11); Aspartate Aminotransferase 13 U/L (13-39); BUN Creatinine Ratio 7.8 (10-20); Bilirubin,Total 0.3 mg/dl (0.2-1.0); Blood Urea Nitrogen 5 mg/dl (6-23); Calcium 8.4 mg/dl (8.6-10.3); Carbon Dioxide 27 mmol/L (21-32); Chloride 105 mmol/L (98-107); Creatinine Clr Calc Pharmacy 177.8 ml/min; Est GFR (African American) > 150.0 ml/min; Est GFR (Non-African American) 134.2 ml/min; Globulin 2.3 gm/dl (2.5-4.0); Glucose 111 mg/dl (70-99(Fasting)); Potassium 3.4 mmol/L (3.5-5.1); Sodium 137 mmol/L (136-145); Total Protein 5.8 gm/dl (6.0-8.3)
[2023-03-31] MEDS: busPIRone 5 MG TAB PO SCH (08:10)
[2023-03-31] MEDS: VENLAFAXINE HCL XR 75 MG CAPXR PO SCH (08:10)
[2023-03-31] MEDS: cloNIDine HCL 0.1 MG TAB PO SCH ×2 (08:11→12:05)
[2023-03-31] MEDS: ONDANSETRON INJ 2 MG/ML 2 ML VIAL IV PRN (08:56)
[2023-03-31] MEDS ORDERED: VANCOMYCIN LEVEL ONE (09:30)
[2023-03-31] MEDS ORDERED: VANCOMYCIN HCL 1,250 MG in SODIUM CHLORIDE 0.9% 250 ML IV STA (10:38)
--- NOTE | 2023-03-31 15:10 | Pharmacy Report ---
Pharmacy PK ABX Note - Date of Service March 31, 2023 - Assessment and Plan Assessment 27 year old M receiving Vancomycin and Ceftriaxone for treatment of cellulitis. * Day #2 of antimicrobial therapy. * Patient to be discharged today. Plan Vancomycin * Current regimen: 1000 mg IV every 8 hours * Random level obtained 03/31/23 resulted as 8.1 mcg/mL. This is subtherapeutic. * Change to 1250 mg IV every 8 hours * Repeat random level ordered for: 04/02/23 Ceftriaxone * 2000 mg IV every 24 hours Pharmacy will continue to follow and will adjust dose/frequency as necessary. Thank you. Pharmacy has transitioned to AUC monitoring for vancomycin. AUC/ZOILA is the preferred PK/PD target and is associated with decreased risk of nephrotoxicity compared to traditional trough targets.
--- NOTE | 2023-03-31 18:03 | Discharge Summary ---
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 He presents to the emergency department with concerns regarding symptoms above, and more specifically has had worsening erythema and discomfort involving right knee, left wrist, chin and multiple other areas. From the emergency department the patient received the following: Normal saline 1 L, vancomycin 2500 mg IV and ceftriaxone 2 g IV Principal Diagnosis ivda with concern for skin infections, no confirmed bacteremia and negative TOM Discharge Exam Patient has multiple areas of erythema on his skin which look to be consistent with likely bacterial embolic source however the patient has a negative TOM and negative blood cultures at this time. He has a crusted area on his right medial knee and erythematous area on his left distal wrist Discharge Data Allergies Allergy/AdvReac Type Severity Reaction Status Date / Time No Known Allergies Allergy Unverified 03/30/23 01:17 Consultations 03/30/23 01:19 ED Decision to Admit Stat 03/30/23 03:26 Consult Pain Management Routine Ordered Studies 03/29/23 22:14 CT Abd and Pelvis [CT abd pelvis IV con only] Stat CT angio chest PE protocol Stat CT head/brain wo con Stat Hospital Course (1) Active intravenous drug use: Course counseled on cessation and continued to have surveillance for communicable diseases associate with drug abuse including HIV and hepatitis (2) Cellulitis: Patient states he has a history of MRSA infections in the past and has not done well on Bactrim and doxycycline. Patient states that what ever prescription we write his family will pay for subsequently be given linezolid 6 mg twice daily for 2 additional weeks. (3) Pneumonia of right upper lobe due to infectious organism: with history of mrsa will have home on linezolid Plan Anxiety/depression- Continue buspirone 10 mg p.o. twice daily and venlafaxine XR 75 mg daily, hold buspar while on linezoid Total Time Total Time Spent Total Time Spent (In Minutes): It required greater than 30 minutes to prepare this patient for discharge Discharge Plan Discharge Items Patient Disposition: Home - Self-Care Reason For Visit: CELLULITIS, IVDA Discharge Diagnosis: multiple sites of skin infection Condition on Discharge: Fair Activity: Resume your previous activity Non-emergency contact: Primary Care Provider Call non-emergency contact if: your symptoms worsen Follow-up/Referrals: PCP,NO [Primary Care Provider] - Diet: Regular Addtl Attending Provider Instructions: keep areas clean and dry, if seeping cover , if dry use antibiotic ointment please follow up with a health care provider next week please consider post phoning work at least michael 04/03/23 hold BuSpar while on antibiotics due to possible side affects Pending Studies at Discharge: No Stand-Alone Forms: My [facility], Smoking Cessation Medications and DC Order Prescriptions: New linezolid 600 mg tablet 600 mg PO BID 10 Days Qty: 20 0RF Continued venlafaxine 75 mg capsule,extended release 24hr 75 mg PO DAILY Held buspirone 10 mg tablet 10 mg PO BID Hold Instructions: Resume on 04/10/23. Discharge Orders: Discharge Order (Routine); Ordered 03/31/23 Ordered By: Ruddy Monroe Admission Data Admit Date/Time: 03/30/23 01:48 Attending Provider: Ruddy Monroe Admit Provider: Dami Rivera Primary Care Provider: PCP,NO Other Providers: Dami Rivera ; Parviz Espitia Other Interventions: Discharge Summary Assessment (RN) Last Done: 03/31/23 15:00 Coding Level of Care Code 72505 INP/OBS DISCH >30 MIN Diagnoses Active intravenous drug use F19.90 Cellulitis L03.90 Pneumonia of right upper lobe due to infectious organism J18.9
== END 2023-03-31 16:04 | disposition home or self-care (01) | DRG 194 ==
LOC: ED 18:50 → SUATTDRO 03-30 01:48 → INTOOBSV 03-30 01:48 → 3N 03-30 01:48